=== PATIENT | male | born 1950 | race Caucasian/White ===

== ENCOUNTER 2022-09-26 10:55 | Emergency (ER) | payer MEDICARE, SELFPAY ==
[2022-09-26 11:06] VITALS: BP 132/63; PULSE 94; RESP 18; TEMP 36.7; O2SAT 98
--- NOTE | 2022-09-26 11:13 | ED.EAR ---
HPI - Ear Problem General Chief complaint: Upper Respiratory Infection Stated complaint: Ear Pain History of Present Illness HPI Narrative: PATIENT PRESENTS WITH LEFT EAR PAIN PATIENT WAS STARTED ON ZYRTEC BY HIS PRIMARY CARE PROVIDER 2 DAYS AGO PATIENT IS TAKING MUCINEX FOR HIS COUGH STATES IS A NONPRODUCTIVE COUGH. NO SHORTNESS OF BREATH NO CHEST PAIN NO FEVER. Related Data Home Medications Medication Instructions Recorded Confirmed antiarthritic combination no.2 900 mg PO 08/20/22 08/27/22 mg tablet (glucosamine-chondroitin) aspirin 81 mg tablet,delayed 81 mg PO DAILY 08/20/22 09/26/22 release atorvastatin 40 mg tablet 40 mg PO DAILY 08/20/22 09/26/22 clopidogrel 75 mg tablet 75 mg PO DAILY 08/20/22 09/26/22 diphenhydramine HCl 25 mg tablet 25 mg PO QHS PRN Pain 08/20/22 09/26/22 (Benadryl Allergy) famotidine 20 mg tablet 20 mg PO DAILY 08/20/22 09/26/22 fluticasone propionate 50 1 spray intranasal DAILY 08/20/22 09/26/22 mcg/actuation nasal spray,suspension loratadine 10 mg tablet 10 mg PO DAILY 08/20/22 09/26/22 losartan 25 mg tablet 25 mg PO DAILY 08/20/22 09/26/22 metoprolol succinate 25 mg 12.5 mg PO DAILY 08/20/22 09/26/22 tablet,extended release 24 hr multivitamin (Daily Multi-Vitamin 1 tablet PO DAILY 08/20/22 09/26/22 tablet) naproxen sodium 220 mg tablet 220 mg PO BID PRN Pain 08/20/22 09/26/22 pantoprazole 40 mg tablet,delayed 40 mg PO QAM 08/20/22 09/26/22 release sertraline 50 mg tablet 50 mg PO DAILY 08/20/22 09/26/22 spironolactone 25 mg tablet 12.5 mg PO DAILY 08/20/22 09/26/22 vitamin B complex (B 1 tablet PO DAILY 08/20/22 09/26/22 Complex-Vitamin B12 tablet) Allergies Allergy/AdvReac Type Severity Reaction Status Date / Time surgical tape Allergy Unknown Unknown Uncoded 09/26/22 11:11 Review of Systems Review of Systems: CONSTITUTIONAL: DENIES CHILLS, OR SWEATS. REPORTS FEVER AND GENERALIZED BODY ACHES EYES: DENIES VISUAL CHANGES, REDNESS, OR DISCHARGE. ENT: DENIES OTALGIA. REPORTS NASAL CONGESTION RUNNY NOSE AND SORE THROAT CARDIOVASCULAR: DENIES CHEST PAIN, PALPITATIONS, OR EDEMA. RESPIRATORY: DENIES DYSPNEA. REPORTS OCCASIONAL COUGH GASTROINTESTINAL: DENIES ABDOMINAL PAIN, NAUSEA, VOMITING, OR DIARRHEA. GENITOURINARY: DENIES DYSURIA OR HEMATURIA. SKIN: DENIES RASH OR ITCHING. MUSCULOSKELETAL: DENIES BACK PAIN, JOINT PAIN, OR MYALGIA. REPORTS GENERALIZED BODY ACHES NEUROLOGIC: DENIES HEADACHE, NUMBNESS, OR WEAKNESS. PSYCHIATRIC: DENIES ANXIETY OR DEPRESSION. 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 History of pacemaker Skin cancer (~06/2019) Removal of skin cancer spots from Rt. Cheek, crown of head,Lt.neck, and below ear. all in 2019 and 2020 Surgical History Surgical History (Updated 08/27/22 @ 13:52 by Janell Milian MA) H/O lateral meniscus repair of right knee (~01/2013) H/O rotator cuff surgery (~03/13/15) left shoulder With bicep repair History of cataract surgery (~07/2018) Both eyes History of intravascular stent placement (~2007) Family History Family History (Updated 08/20/22 @ 10:02 by Tasia Cain) Mother Arthritis Cerebrovascular accident Heart disease Father Spinal stenosis Arthritis Social History Social History Smoking status: Never smoker Alcohol intake: current Alcohol use details: 2-3 times a week. Substance use: never Substance use type: does not use Lack of Transportation: No Lack of Food: Never True Current Housing: I Have Housing Concerned About Future Housing: No Difficulty Paying Gas/Electric Bills: No Difficulty Paying for Meds: No Currently Unemployed: No Education: Master's Degree or Higher Difficulty w/ Childcare or Family Care: No Comments AT TIME OF SIGNATURE, AGREE WITH NURS
== END 2022-09-26 11:20 | disposition home or self-care (01) ==
PROVIDERS: Emergency Provider Nurse Practitioner Family
DX: H60.92 Unspecified otitis externa, left ear (principal); I25.2 Old myocardial infarction; Z79.82 Long term (current) use of aspirin; Z79.1 Long term (current) use of non-steroidal anti-inflammatories (NSAID); Z85.828 Personal history of other malignant neoplasm of skin
CPT/HCPCS: 99213; G0463